=== PATIENT | male | born 1985 | race Two or more races ===

== ENCOUNTER 2023-06-22 21:32 | Emergency (ER) | payer SELFPAY | END 2023-06-22 22:30 | disposition left against medical advice (07) | LOC: ERS 21:32 | DX: S09.90XA Unspecified injury of head, initial encounter (principal); F10.129 Alcohol abuse with intoxication, unspecified; F17.210 Nicotine dependence, cigarettes, uncomplicated; Y04.0XXA Assault by unarmed brawl or fight, initial encounter; Y93.89 Activity, other specified ==